=== PATIENT | female | born 1945 | race Two or more races ===

== ENCOUNTER 2017-12-27 10:31 | Emergency (ER) | payer OTHER, MEDICARE ==
[~2017-12-27] VITALS: Ht 167.6 cm; Wt 84.0 kg
[2017-12-27 10:32] VITALS: BP 154/74
[2017-12-27 11:21] LABS: MICROSCOPIC INDICATED
== END 2017-12-27 11:45 | disposition home or self-care (01) ==
LOC: ED 11:00
DX: N30.90 Cystitis, unspecified without hematuria (principal); E11.9 Type 2 diabetes mellitus without complications
CPT/HCPCS: 81001; 82962; 99283